=== PATIENT | female | born 1970 | race Hispanic/Latino ===

== ENCOUNTER 2018-04-13 10:23 | Day surgery (SDC) | payer BC ==
[2018-04-13 11:31] VITALS: BMI 27.3
[2018-04-13] MEDS ORDERED: Lidocaine 1% Inj (20ml) ONE (12:31)
--- NOTE | 2018-04-13 13:54 | PCM.SURG1 ---
Surgeon's Initial Post Op Note - Surgeon's Notes Surgeon: Eduar Leigh MD Medical Social Worker: NONE Type of Anesthesia: Local Pre-Operative Diagnosis: Right thyroid nodule Operative Findings: US showed a mixed solid and cystic right thyroid nodule Post-Operative Diagnosis: Thyroid nodule Operation Performed: US guided FNA Specimen/Specimens Removed: 25 g FNA x 5 passes Estimated Blood Loss: EBL {In ML}: 0 Blood Products Given: N/A Drains Used: No Drains Post-Op Condition: Good Date of Surgery/Procedure: 04/13/18 Time of Surgery/Procedure: 13:54
--- NOTE | 2018-04-13 13:55 | CP.SDSHP ---
Same Day Surgery H & P - History Proposed Procedure: US guided FNA thyroid nodule Pre-Op Diagnosis: Thyroid nodule - Allergies Allergies: Allergies No Known Allergies Allergy (Verified 04/13/18 11:31) - Physical Exam Vital Signs: Vital Signs 04/13/18 04/13/18 11:33 12:01 Temperature 97.5 F L 98.0 F Pulse Rate 60 55 L Respiratory 18 16 Rate Blood Pressure 123/64 102/59 L O2 Sat by Pulse 99 Oximetry Mental Status: Alert & Oriented x3 - Impression Impression: Pt with a mixed solid and cystic right thyroid nodule. Plan US guided FNA. Pt. Evaluated Today:Candidate for Anesthesia & Procedure: No - Date & Time Date: 04/13/18 Time: 12:45 Short Stay Discharge - Short Stay Discharge Admitting Diagnosis/Reason for Visit: THYROID NODULE Disposition: HOME/ ROUTINE
[2018-04-13 14:58] VITALS: BP 116/67; PULSE 72; RESP 18; TEMP 98.1; O2SAT 97
--- NOTE | 2018-04-14 13:54 | US ---
PROCEDURE: Date of Procedure: 04/13/2018 PROCEDURE: 1. Ultrasound guided FNA of right thyroid nodule, CPT 13857 2. Ultrasound guidance for FNA, [address]245 Medications: 3cc 1% Lidocaine HISTORY: Enlarged right thyroid nodule. TECHNIQUE: Following informed consent and procedure time-out, a limited ultrasound patient's neck confirmed the presence of a 1.5 Cm complex right thyroid nodule which is mixed solid and cystic. After the patient's neck was prepped and draped in the usual sterile fashion, the skin was anesthetized with 1% lidocaine. Ultrasound-guided fine needle aspiration was then performed of the dominant right thyroid nodule. A total of 5 passes were made into the nodule with 25 gauge needle under ultrasound guidance. The FNA specimen was sent for routine pathology and genetics . Post biopsy ultrasound showed no hematoma. IMPRESSION: Ultrasound-guided FNA of the dominant right thyroid nodule.
== END 2018-04-13 14:55 | disposition home or self-care (01) ==
LOC: H.OPSURG 10:23
PROVIDERS: ATTEND Family Medicine
DX: E04.1 Nontoxic single thyroid nodule (principal)